=== PATIENT | female | born 1945 ===

== ENCOUNTER 2020-06-19 19:29 | Emergency (ER) | payer MEDICARE ==
[~2020-06-19] VITALS: Ht 162.6 cm; Wt 62.0 kg
[2020-06-19] MEDS ORDERED: ATROPINE SULFATE 0.1 MG/ML 10 ML SYRINGE IVP ONE (19:30)
[2020-06-19] MEDS ORDERED: EPINEPHrine 1:10,000 [1 MG/10 ML] SYRINGE IVP ONE (19:30)
[2020-06-19 19:48] VITALS: BP 98/89
[2020-06-19] MEDS ORDERED: HEPARIN SODIUM,PORCINE 5,000 UNITS/ML VIAL IVP ONE ×2 (20:00→20:15)
[2020-06-19] MEDS ORDERED: SODIUM CHLORIDE 0.9% 1,000 ML IV ONE (20:00)
[2020-06-19] MEDS ORDERED: HEPARIN SODIUM 25000 UNITS/D5W 250 ML IV PRN (20:00)
[2020-06-19] MEDS ORDERED: HEPARIN SODIUM,PORCINE 5,000 UNITS/ML VIAL IVP PRN ×2 (20:00)
[2020-06-19 20:27] LABS: BASOPHILS % (AUTO) 0.7 % (0.0-2.0); EOSINOPHILS % (AUTO) 0.2 % (1.0-6.0); HEMATOCRIT 39.3 % (36-46); HEMOGLOBIN 11.9 g/dL (12.0-16.0); LYMPHOCYTES # (AUTO) 5.2 K/uL (1.0-4.8); LYMPHOCYTES % (AUTO) 33.5 % (22.0-44.0); MEAN CORPUSCULAR HEMOGLOBIN 29.1 pg (26.0-34.0); MEAN CORPUSCULAR HGB CONC 30.3 G/dL (31.0-37.0); MEAN CORPUSCULAR VOLUME 96 fL (80-100); MONOCYTES # (AUTO) 1.4 K/uL (0.1-1.0); MONOCYTES % (AUTO) 8.8 % (2.0-9.0); NEUTROPHILS # (AUTO) 8.8 K/uL (1.8-7.7); NEUTROPHILS % (AUTO) 56.8 % (40.0-70.0); PLATELET COUNT (AUTO) 256 K/uL (150-450); RED BLOOD CELL COUNT(AUTO) 4.08 MIL/uL (4.00-5.20); RED CELL DISTRIBUTION WIDTH 15.4 % (11.5-14.5)
[2020-06-19 20:38] LABS: CREATININE 2.18 mg/dL (0.60-1.30); POTASSIUM 4.2 mmol/L (3.5-5.1)
[2020-06-19 20:50] LABS: D-DIMER 17.72 mg/L FEU (0.00-0.50); INR 1.1 (0.9-1.1); PROTHROMBIN TIME 11.6 SEC (9.4-11.6)
[2020-06-19 21:03] LABS: ALBUMIN 2.4 g/dL (3.4-5.0); BILIRUBIN,TOTAL 1.5 mg/dL (0.1-1.0); MAGNESIUM 3.5 mg/dL (1.80-2.40); PHOSPHORUS 8.1 mg/dL (2.5-4.9); TOTAL PROTEIN, SERUM 7.1 g/dL (6.4-8.2)
[2020-06-19 21:54] LABS: ERYTHROCYTE SEDIMENTATION RATE 37 MM/HR (0-20)
== END 2020-06-19 21:33 | disposition designated cancer center or children's hospital (05) ==
LOC: EMS 19:29
DX: I46.9 Cardiac arrest, cause unspecified (principal); I21.29 ST elevation (STEMI) myocardial infarction involving other sites
CPT/HCPCS: 31500; 36415; 71045; 80053; 82550; 82728; 82962; 83615; 83735; 84100; 84145; 84484; 85025; 85379; 85610; 85651; 85730; 87040; 87077; 87205; 93005; 96360; 99291; J0171; J0461; J7030; 94002